=== PATIENT | male | born 1955 | race Caucasian/White ===

== ENCOUNTER 2018-03-21 07:07 | Inpatient (IN) ==
[2018-03-21] MEDS ORDERED: Sod Chloride 0.9% Inj 1,000 ML IV.SIG ONE ×2 (07:40→07:45)
--- NOTE | 2018-03-21 07:44 | ED ---
HPI General Chief complaint: Nausea/Vomiting/Diarrhea Stated complaint: Vomitting/Diabetic Complaint Time Seen by Provider: 03/21/18 07:32 History of Present Illness HPI Narrative: This patient complains of nausea and vomiting. Duration 4 days. Symptoms are moderately severe. He is a diabetic who is supposed to be on insulin but he quit taking it a year ago. He does not go to physicians. He smokes. Sounds like he just quit taking care of himself a while back. He denies depression or suicidal ideation. He had diarrhea earlier in the week but that resolved. He is not having abdominal pain or fever. No alleviating factors. Symptoms exacerbated by his noncompliance. Related Data Allergies Allergy/AdvReac Type Severity Reaction Status Date / Time No Known Allergies Allergy Uncoded 04/11/16 10:30 Review of Systems ROS: all other systems reviewed are negative [facility] Medical History Medical History Diabetes (Acute) Hypertension (Acute) Skin cancer (Acute) Social History Social History Second Hand Smoke Exposure: No Smoking Status: Current every day smoker Tobacco Type: Cigarettes How Often Do You Have a Drink Containing Alcohol: Never Recent Travel in [facility] within the Last 8 Weeks: No Recent Out of Country Travel within the Last 8 Weeks: No Exam Narrative Exam Narrative: GENERAL: Thin well-developed patient in no apparent distress. SKIN: Focused skin assessment reveals no rash and nodules. Skin is Warm and dry. HEAD: Atraumatic. Normocephalic. EYES: Pupils equal and round. No scleral icterus. No injection or drainage. ENT: No nasal bleeding or discharge. Mucous membranes pink and moist. NECK: Trachea midline. No JVD. CARDIOVASCULAR: Regular rate and rhythm. No murmur appreciated. RESPIRATORY: No accessory muscle use. Clear to auscultation. Breath sounds equal bilaterally. GASTROINTESTINAL: Abdomen soft, non-tender, nondistended. Hepatic and splenic margins not palpable. MUSCULOSKELETAL: No obvious deformities. No clubbing. No cyanosis. No edema. NEUROLOGICAL: Awake and alert. No obvious cranial nerve deficits. Motor grossly within normal limits. Normal speech. PSYCHIATRIC: Appropriate mood and affect; insight and judgment poor Course Initial Documented Vital Signs Temperature 97.9 F 03/21/18 07:21 Pulse Rate 112 H 03/21/18 07:21 Respiratory Rate 18 03/21/18 07:21 Blood Pressure 148/87 H 03/21/18 07:21 Pulse Oximetry 100 03/21/18 07:21 Last Documented Vital Signs Temperature 97.9 F 03/21/18 07:21 Pulse Rate 112 H 03/21/18 07:21 Respiratory Rate 18 03/21/18 07:21 Blood Pressure 148/87 H 03/21/18 07:21 Pulse Oximetry 100 03/21/18 07:21 Medical Decision Making MDM Narrative Medical decision making narrative: This is a 63-year-old male who complains of vomiting for [address] IV and give him IV fluid and medications for nausea and labs. Accu-Chek is 594. I gave him 2 L of normal saline IV bolus and some IV regular insulin. Studies are reviewed. This patient will require admission. He is very dehydrated. He is hyperglycemic and ketotic. He continues to vomit. He is not acidotic and is not in DKA. His bicarbonate and pH are not consistent with DKA. Case reviewed with the medical residents will admit. Repeat sugar is 374 Medical Screen Exam Complete: Yes Emergency Medical Condition: Yes Differential Diagnosis Differential Diagnosis: Dehydration, DKA, noncompliance Medical Records Medical records reviewed: Yes I reviewed the patient's medical records. Lab Data Lab results reviewed: Yes I reviewed the patient's lab results. Lab results narrative: Patient has hyperglycemia and ketosis and azotemia Result diagrams: 03/21/18 08:05 03/21/18 08:05 Lab Results 03/21/18 03/21/18 03/21/18 Range/Units 07:42 08:01 08:05 WBC 13.2 H (4.0-11.0) th/mm3 RBC 5.47 (4.50-5.90) mil/mm3 Hgb 17.1 H (13.0-17.0) gm/dL Hct 50.5 (39.0-51.0) % MCV 92.4 (80.0-100.0) fL MCH 31.3 (27.0-34.0) pg MCHC 33.9 (32.0-36.0) % RDW 13.7 (11.6-17.2) % Plt Count 281 (150-450) th/mm3 MPV 9.3 (7.0-11.0) fL Neut % (Auto) 83.0 H (16.0-70.0) % Lymph % (Auto) 9.6 (9.0-44.0) % Gaston % (Auto) 7.2 (0.0-8.0) % Eos % (Auto) 0.0 (0.0-4.0) % Baso % (Auto) 0.2 (0.0-2.0) % Neut # (Auto) 11.0 H (1.8-7.7) th/mm3 Lymph # (Auto) 1.3 (1.0-4.8) th/mm3 Gaston # (Auto) 0.9 (0.0-0.9) th/mm3 Eos # (Auto) 0.0 (0.0-0.4) th/mm3 Baso # (Auto) 0.0 (0.0-0.2) th/mm3 WBC Differential . Differential Comment Auto diff final Puncture Site Left brachial Patient Temperature 98.6 O2 Saturation 94 (90-100) % ABG pH 7.55 H* (7.380-7.420) ABG pCO2 33 L (38-42) mmHg ABG pO2 72 (61-120) mmHg ABG HCO3 29 H (22-26) mmol/L ABG O2 Content 20.5 H (12.0-20.0) Vol % ABG Base Excess 5.9 H (-2-2) mmol/L ABG Methemoglobin 0.5 (0-2) % Ky Test Present Hemoglobin 15.5 (12.0-16.0) G/DL Carboxyhemoglobin 1.4 (0-4) % Inspired O2 21 % Critical Value Yes Sodium (136-145) meq/L Potassium (3.5-5.1) meq/L Chloride (98-107) meq/L Carbon Dioxide (21.0-32.0) meq/L Anion Gap (5-15) meq/L BUN (7-18) mg/dL Creatinine (0.60-1.30) mg/dL Estimated GFR (>89) mL/min POC Glucose 594 H* (68-110) mg/dl Random Glucose (74-106) mg/dL Calcium (8.5-10.1) mg/dL Total Bilirubin (0.2-1.0) mg/dL AST (15-37) U/L ALT (12-78) U/L Alkaline Phosphatase (45-117) U/L Total Protein (6.4-8.2) g/dL Albumin (3.4-5.0) g/dL Beta-Hydroxybutyric Acd (0.00-0.39) mmol/L 03/21/18 03/21/18 03/21/18 Range/Units 08:05 08:05 09:09 WBC (4.0-11.0) th/mm3 RBC (4.50-5.90) mil/mm3 Hgb (13.0-17.0) gm/dL Hct (39.0-51.0) % MCV (80.0-100.0) fL MCH (27.0-34.0) pg MCHC (32.0-36.0) % RDW (11.6-17.2) % Plt Count (150-450) th/mm3 MPV (7.0-11.0) fL Neut % (Auto) (16.0-70.0) % Lymph % (Auto) (9.0-44.0) % Gaston % (Auto) (0.0-8.0) % Eos % (Auto) (0.0-4.0) % Baso % (Auto) (0.0-2.0) % Neut # (Auto) (1.8-7.7) th/mm3 Lymph # (Auto) (1.0-4.8) th/mm3 Gaston # (Auto) (0.0-0.9) th/mm3 Eos # (Auto) (0.0-0.4) th/mm3 Baso # (Auto) (0.0-0.2) th/mm3 WBC Differential Differential Comment Puncture Site Patient Temperature O2 Saturation (90-100) % ABG pH (7.380-7.420) ABG pCO2 (38-42) mmHg ABG pO2 (61-120) mmHg ABG HCO3 (22-26) mmol/L ABG O2 Content (12.0-20.0) Vol % ABG Base Excess (-2-2) mmol/L ABG Methemoglobin (0-2) % Ky Test Hemoglobin (12.0-16.0) G/DL Carboxyhemoglobin (0-4) % Inspired O2 % Critical Value Sodium 136 (136-145) meq/L Potassium 3.9 (3.5-5.1) meq/L Chloride 90 L (98-107) meq/L Carbon Dioxide 29.7 (21.0-32.0) meq/L Anion Gap 16 H (5-15) meq/L BUN 50 H (7-18) mg/dL Creatinine 1.68 H (0.60-1.30) mg/dL Estimated GFR 41 L (>89) mL/min POC Glucose 372 H (68-110) mg/dl Random Glucose 657 H* (74-106) mg/dL Calcium 9.2 (8.5-10.1) mg/dL Total Bilirubin 1.1 H (0.2-1.0) mg/dL AST 13 L (15-37) U/L ALT 17 (12-78) U/L Alkaline Phosphatase 109 (45-117) U/L Total Protein 8.5 H (6.4-8.2) g/dL Albumin 4.0 (3.4-5.0) g/dL Beta-Hydroxybutyric Acd 1.55 H (0.00-0.39) mmol/L 03/21/18 Range/Units 11:19 WBC (4.0-11.0) th/mm3 RBC (4.50-5.90) mil/mm3 Hgb (13.0-17.0) gm/dL Hct (39.0-51.0) % MCV (80.0-100.0) fL MCH (27.0-34.0) pg MCHC (32.0-36.0) % RDW (11.6-17.2) % Plt Count (150-450) th/mm3 MPV (7.0-11.0) fL Neut % (Auto) (16.0-70.0) % Lymph % (Auto) (9.0-44.0) % Gaston % (Auto) (0.0-8.0) % Eos % (Auto) (0.0-4.0) % Baso % (Auto) (0.0-2.0) % Neut # (Auto) (1.8-7.7) th/mm3 Lymph # (Auto) (1.0-4.8) th/mm3 Gaston # (Auto) (0.0-0.9) th/mm3 Eos # (Auto) (0.0-0.4) th/mm3 Baso # (Auto) (0.0-0.2) th/mm3 WBC Differential Differential Comment Puncture Site Patient Temperature O2 Saturation (90-100) % ABG pH (7.380-7.420) ABG pCO2 (38-42) mmHg ABG pO2 (61-120) mmHg ABG HCO3 (22-26) mmol/L ABG O2 Content (12.0-20.0) Vol % ABG Base Excess (-2-2) mmol/L ABG Methemoglobin (0-2) % Ky Test Hemoglobin (12.0-16.0) G/DL Carboxyhemoglobin (0-4) % Inspired O2 % Critical Value Sodium (136-145) meq/L Potassium (3.5-5.1) meq/L Chloride (98-107) meq/L Carbon Dioxide (21.0-32.0) meq/L Anion Gap (5-15) meq/L BUN (7-18) mg/dL Creatinine (0.60-1.30) mg/dL Estimated GFR (>89) mL/min POC Glucose 341 H (68-110) mg/dl Random Glucose (74-106) mg/dL Calcium (8.5-10.1) mg/dL Total Bilirubin (0.2-1.0) mg/dL AST (15-37) U/L ALT (12-78) U/L Alkaline Phosphatase (45-117) U/L Total Protein (6.4-8.2) g/dL Albumin (3.4-5.0) g/dL Beta-Hydroxybutyric Acd (0.00-0.39) mmol/L Discharge Plan Discharge Disposition Patient Disposition: 30 Still Patient Discharge Details Diagnosis: Intractable vomiting, Acute hyperglycemia, Diabetic ketosis without coma, Acute dehydration Physicians Team ED Provider: Anthony Chin Primary Care Provider: Gertrudis Swift Discharge Interventions Interventions: Vital Signs Last Done: 03/21/18 07:36 Status ED Status: With Doctor
[2018-03-21 08:21] LABS: ABG Base Excess 5.9 mmol/L (-2-2); ABG PCO2 33 mmHg (38-42); ABG PO2 72 mmHg (61-120)
[2018-03-21 08:23] LABS: Baso % (Auto) 0.2 % (0.0-2.0); Hematocrit 50.5 % (39.0-51.0); Hemoglobin 17.1 gm/dL (13.0-17.0); Lymph # (Auto) 1.3 th/mm3 (1.0-4.8); Lymph % (Auto) 9.6 % (9.0-44.0); Mean Corpuscular HGB Conc 33.9 % (32.0-36.0); Mean Corpuscular Hemoglobin 31.3 pg (27.0-34.0); Mean Corpuscular Volume 92.4 fL (80.0-100.0); Mean Platelet Volume 9.3 fL (7.0-11.0); Mono # (Auto) 0.9 th/mm3 (0.0-0.9); Mono % (Auto) 7.2 % (0.0-8.0); Platelet Count 281 th/mm3 (150-450); Red Blood Count 5.47 mil/mm3 (4.50-5.90); Red Cell Distribution Width 13.7 % (11.6-17.2); White Blood Count 13.2 th/mm3 (4.0-11.0)
[2018-03-21 08:53] LABS: Alanine Aminotransferase 17 U/L (12-78); Alkaline Phosphatase 109 U/L (45-117); Anion Gap 16 meq/L (5-15); Aspartate Aminotransferase 13 U/L (15-37); Blood Urea Nitrogen 50 mg/dL (7-18); Calcium 9.2 mg/dL (8.5-10.1); Carbon Dioxide 29.7 meq/L (21.0-32.0); Chloride 90 meq/L (98-107); Glomerular Filtration Rate 41 mL/min (>89); Potassium 3.9 meq/L (3.5-5.1); Sodium 136 meq/L (136-145); Total Protein 8.5 g/dL (6.4-8.2)
[2018-03-21 08:56] LABS: Glucose,Random 657 mg/dL (74-106)
--- NOTE | 2018-03-21 09:58 | P.HPFP ---
History of Present Illness Primary Care Physician: Gertrudis Swift MD <Neal May - 03/21/18 15:22> Gertrudis Swift MD <Nancy Tiwari - 03/21/18 09:58> Chief Complaint: Vomiting <Nancy Tiwari N - 03/21/18 14:08> History of Present Illness: 63 y/o w/hx of DM2 presenting w/HHS. Dropped of at the ER by his girlfriend. Has a hx of type 2 diabetes. Last took insulin a year ago, does not remember how much he was on. Insurance ran out, did not get more medication. Started feeling very sick on Sunday- had nausea and vomiting, vomited about 10- 15 times. Vomit appears very thick, is like acid. Last ate on Sunday afternoon. After that, has been vomiting. Has been able to drink water but hasn' t been able eat. No PCP and did not see the doctor during this week. Has belly pain periumbilically. Has been having chills, diarrhea, short of breath. Has been having a cough for a week. Sputum is white. Has felt feverish the last couple days. Feels weak and dizziness. No dysuria or hematuria. No unusual rashes. Thinks he has a skin cancer on his left cheek near his ear. Has had decreased appetite for the past several months. Sometimes has night sweats. Has lost weight in the last couple months. Has been feeling weak and dizzy. Underwent colonoscopy within the last 10 years. Last regular doctor was a year ago. Med hx: Has HTN. Does not take any medication. Surgery hx: Had skin cancer removed from face a year ago. No FH of medical illness: Mom: unknown Father:unknown Smoker: 20 pack year. No ETOH use, no drug use. Marijuana occasionally. <Nancy Tiwari - 03/21/18 14:43> - Diagnosis (1) Type 2 diabetes mellitus with hyperosmolar nonketotic hyperglycemia (2) Cough (3) Metabolic alkalosis (4) HTN (hypertension) (5) Smoker <Nancy Tiwari - 03/21/18 14:22> Inpatient Certification: I certify that the inpatient services were ordered in accordance with Medicare regulations governing the order. This includes certification that hospital inpatient services are reasonable and necessary and in the case of services not specified as inpatient-only under 42 CFR 419.22(n), that they are appropriately provided as inpatient services in accordance to with the 2-midnight benchmark under 43 CFR 412.3(e) <Neal May - 03/21/18 15:22> Review of Systems All other systems reviewed negative except as stated in HPI <Nancy Tiwari 03/21/18 14:08> Eyes: Denies double vision, Denies loss of vision <Nancy Tiwari 03/21/18 14 :08> Ears, Nose, Mouth, and Throat: Denies mouth pain, Denies pain with swallowing <Nancy manzo 03/21/18 14:08> Cardiovascular: Denies chest pain, Denies rapid, pounding, or irregular heartbeat <Nancy manzo 03/21/18 14:08> Respiratory: Denies chest congestion, Denies coughing up blood <Nancy manzo 03/21/18 14:08> Gastrointestinal: Denies constant urge to pass stool, Denies excessive passing of gas <Nancy 03/21/18 14:08> Genitourinary: Denies blood in urine, Denies difficulty urinating, Denies urinary urgency <jovanyNancy 03/21/18 14:08> Musculoskeletal: Denies numbness <ana 03/21/18 14:08> Neurologic: Denies numbness, Denies tingling <Nancy manzo 03/21/18 14:08> Endocrine: Denies cold intolerance, Denies increased urination <Nancy 03/21/18 14:08> PMFSH - History History Provided By: Patient <Nancy Tiwari 03/21/18 09:58> - Medical History Medical History: Medical History (Last Updated 03/21/18 @ 07:45 by Darien Mcguire) Diabetes Hypertension Skin cancer <YadiraNeal - 03/21/18 15:22> Medical History (Last Updated 03/21/18 @ 07:45 by Darien Mcguire) Diabetes Hypertension Skin cancer <Nancy Tiwari 03/21/18 09:58> - Tobacco History Second Hand Smoke Exposure: No <Nancy Tiwari - 03/21/18 09:58> Tobacco Use In Past 30 Days: No <Nancy Tiwari Devin - 03/21/18 09:58> Smoking Status: Current every day smoker <Nancy Tiwari Devin - 03/21/18 09:58> Tobacco Type: Cigarettes <Nancy Tiwari Devin - 03/21/18 09:58> - Alcohol History How Often Do You Have a Drink Containing Alcohol: Never <KeyannajovanyNancy Devin - 03/21 09:58> - Travel History Recent Travel in the [facility] Within the Last 8 Weeks: No <Nancy Tiwari Devin - 09:58> Recent Travel Out of the Country Within the Last 8 Weeks: No <KeyannajovanyNancy Devin - 03/21/18 09:58> - Immunization History Tetanus Immunization: Unsure <Nancy Tiwari Devin - 03/21/18 09:58> Medications and Allergies Allergies Allergy/AdvReac Type Severity Reaction Status Date / Time No Known Allergies Allergy Uncoded 04/11/16 10:30 <Neal May - 03/21/18 15:22> Home Medications Medication Instructions Recorded Confirmed Type No Known Home Medications 03/21/18 03/21/18 History <Neal May - 03/21/18 15:22> Active Medications: Active Medications Chlorhexidine Gluconate (Chlorhexidine 2% Cloth) 3 pack TOPICAL DAILY@0400 [facility] Stop: 03/27/18 03:59 Chlorhexidine Gluconate (Chlorhexidine 2% Cloth) 3 pack TOPICAL DAILY@0400 PRN PRN Reason: Extra cloth needed Stop: 03/27/18 03:59 Dextrose (D50w Vial) 50 ml IV.PUSH UNSCH PRN PRN Reason: PER HYPOGLYCEMIA PROTOCOL Glucagon (Glucagon Inj) 1 mg OTHER PRN PRN PRN Reason: for Hypoglycemia Protocol Insulin Human Regular 100 unit (/ Sodium Chloride) 100 mls @ 5 mls/hr IV.CONT TITRATE PRN; Protocol PRN Reason: See protocol Last Titration: 03/21/18 13:36 Dose: 6.5 units/hr, 6.5 mls/hr Sodium Chloride (1/2 Normal Saline Inj) 1,000 mls @ 250 mls/hr IV.CONT .Q4H [facility] Last Infusion: 03/21/18 15:08 Dose: Infused Potassium Chloride (Kcl 40 Meq Premix Inj) 40 meq in 100 mls @ 100 mls/hr IV.SIG Q1H PRN PRN Reason: for Initial K+ ONLY < 3.5 Potassium Chloride (Kcl 40 Meq Premix Inj) 40 meq in 100 mls @ 50 mls/hr IV.SIG Q2H PRN PRN Reason: for Subsequent K+ < 3.5 Potassium Chloride (Kcl 20 Meq Premix Inj) 20 meq in 100 mls @ 100 mls/hr IV.SIG Q1H PRN PRN Reason: for K+ 3.5 to 4.4 Potassium Chloride (Kcl 20 Meq Premix Inj) 20 meq in 100 mls @ 50 mls/hr IV.SIG Q2H PRN PRN Reason: for Initial K+ ONLY < 3.5 Last Admin: 03/21/18 13:38 Dose: 50 mls/hr Potassium Chloride (Kcl 20 Meq Premix Inj) 20 meq in 100 mls @ 50 mls/hr IV.SIG Q2H PRN PRN Reason: for Subsequent K+ < 3.5 Potassium Chloride (Kcl 20 Meq Premix Inj) 20 meq in 100 mls @ 50 mls/hr IV.SIG Q2H PRN PRN Reason: for K+ 3.5 to 4.4 Potassium Chloride (Kcl 20 Meq Premix Inj) 20 meq in 100 mls @ 50 mls/hr IV.SIG Q2H PRN PRN Reason: for K+ 4.5 to 5 Sodium Phosphate 15 mmol/ (Sodium Chloride) 105 mls @ 25 mls/hr IV.SIG UNSCH PRN PRN Reason: for Phosphate Level < 1.0 Dextrose/Sodium Chloride (D5w/1/2 Ns Inj) 1,000 mls @ 200 mls/hr IV.CONT .Q5H [facility] Last Admin: 03/21/18 15:08 Dose: 200 mls/hr Potassium Chloride (Kcl 20 Meq Premix Inj) 20 meq in 100 mls @ 100 mls/hr IV.SIG Q1H PRN PRN Reason: for K+ 4.5 to 5 Insulin Aspart (Novolog Insulin Correctional Sugar Inj) 0 unit SQ 07,13,19,01 [facility]; Protocol Nicotine (Habitrol 21 Mg Patch.24 Hr) 1 patch T-DERMAL DAILY [facility] Patch Removal (Remove Old Patch) 1 each T-DERMAL HS [facility] Sodium Bicarbonate (Sodium Bicarbonate 8.4% Inj) 50 meq IV.PUSH UNSCH PRN PRN Reason: for pH 6.9 to 7.0 Sodium Bicarbonate (Sodium Bicarbonate 8.4% Inj) 100 meq IV.PUSH UNSCH PRN PRN Reason: for pH less than 6.9 Sodium Chloride (Ns Flush) 2 ml IV.FLUSH BID [facility] Sodium Chloride (Ns Flush) 2 ml IV.FLUSH PRN PRN PRN Reason: FLUSH AFTER USING IV ACCESS <Neal May - 03/21/18 15:22> Active Medications Sodium Chloride (Ns Flush) 2 ml IV.FLUSH PRN PRN PRN Reason: FLUSH AFTER USING IV ACCESS <Nancy Tiwari - 03/21/18 09:58> Exam Vital signs: Vital Signs 03/21/18 07:21 03/21/18 12:26 03/21/18 14:22 Temperature 97.9 F Pulse Rate 112 H 80 91 H Respiratory Rate 18 17 17 Blood Pressure 148/87 H 141/90 H 153/84 H Pulse Oximetry 100 100 100 Intake & Output 03/20/18 03/21/18 03/21/18 18:59 06:59 18:59 Intake Total 2750 / 2750 Balance 2750 / 2750 Weight 54.431 kg Intake: IV 2750 / 2750 1/2 Normal Saline Inj 1,000 ML 750 / 750 @ 250 mls/hr IV.CONT .Q4H [facility] Rx#:[id number] NS Inj 1,000 ML @ Wide Open IV. 1999 / 1999 SIG BOLUS ONE Rx#:[id number] <Neal May - 03/21/18 15:22> Vital Signs 03/21/18 07:21 Temperature 97.9 F Pulse Rate 112 H Respiratory Rate 18 Blood Pressure 148/87 H Pulse Oximetry 100 Intake & Output 03/20/18 03/21/18 03/21/18 18:59 06:59 18:59 Weight 54.431 kg <Nancy Tiwari - 03/21/18 09:58> Narrative: GENERAL: Thin, pale, cachectic man appearing distressed and vomiting. SKIN: Warm and dry. A 5 mm skin lesion on the left side of the face. HEAD: Atraumatic. Normocephalic. EYES: Pupils equal and round. No scleral icterus. No injection or drainage. ENT: No nasal bleeding or discharge. Mucous membranes dry. NECK: Trachea midline. No JVD. CARDIOVASCULAR: Regular rate and rhythm. RESPIRATORY: No accessory muscle use. Clear to auscultation. Breath sounds equal bilaterally. GASTROINTESTINAL: Abdomen firm, tender in the lower quadrants. MUSCULOSKELETAL: Extremities without clubbing, cyanosis, or edema. No obvious deformities. NEUROLOGICAL: Awake and alert. No obvious cranial nerve deficits. PSYCHIATRIC: Appropriate mood and affect; insight and judgment normal. <Nancy Tiwari - 03/21/18 14:08> Results - Labs Result diagrams: 03/21/18 08:05 03/21/18 12:57 <Neal May - 03/21/18 15:22> Abnormal lab results 03/21/18 03/21/18 03/21/18 Range/Units 07:42 08:01 08:05 WBC 13.2 H (4.0-11.0) th/mm3 Hgb 17.1 H (13.0-17.0) gm/dL Neut % (Auto) 83.0 H (16.0-70.0) % Neut # (Auto) 11.0 H (1.8-7.7) th/mm3 ABG pH 7.55 H* (7.380-7.420) ABG pCO2 33 L (38-42) mmHg ABG HCO3 29 H (22-26) mmol/L ABG O2 Content 20.5 H (12.0-20.0) Vol % ABG Base Excess 5.9 H (-2-2) mmol/L Sodium (136-145) meq/L Potassium (3.5-5.1) meq/L Chloride (98-107) meq/L Anion Gap (5-15) meq/L BUN (7-18) mg/dL Creatinine (0.60-1.30) mg/dL Estimated GFR (>89) mL/min POC Glucose 594 H* (68-110) mg/dl Random Glucose (74-106) mg/dL Osmolality (275-295) mosm/kg Calcium (8.5-10.1) mg/dL Phosphorus (2.5-4.9) mg/dL Total Bilirubin (0.2-1.0) mg/dL AST (15-37) U/L Total Protein (6.4-8.2) g/dL Beta-Hydroxybutyric Acd (0.00-0.39) mmol/L U Cannabinoids Screen (Neg) 03/21/18 03/21/18 03/21/18 Range/Units 08:05 08:05 09:09 WBC (4.0-11.0) th/mm3 Hgb (13.0-17.0) gm/dL Neut % (Auto) (16.0-70.0) % Neut # (Auto) (1.8-7.7) th/mm3 ABG pH (7.380-7.420) ABG pCO2 (38-42) mmHg ABG HCO3 (22-26) mmol/L ABG O2 Content (12.0-20.0) Vol % ABG Base Excess (-2-2) mmol/L Sodium (136-145) meq/L Potassium (3.5-5.1) meq/L Chloride 90 L (98-107) meq/L Anion Gap 16 H (5-15) meq/L BUN 50 H (7-18) mg/dL Creatinine 1.68 H (0.60-1.30) mg/dL Estimated GFR 41 L (>89) mL/min POC Glucose 372 H (68-110) mg/dl Random Glucose 657 H* (74-106) mg/dL Osmolality (275-295) mosm/kg Calcium (8.5-10.1) mg/dL Phosphorus (2.5-4.9) mg/dL Total Bilirubin 1.1 H (0.2-1.0) mg/dL AST 13 L (15-37) U/L Total Protein 8.5 H (6.4-8.2) g/dL Beta-Hydroxybutyric Acd 1.55 H (0.00-0.39) mmol/L U Cannabinoids Screen (Neg) 03/21/18 03/21/18 03/21/18 Range/Units 11:00 11:16 11:19 WBC (4.0-11.0) th/mm3 Hgb (13.0-17.0) gm/dL Neut % (Auto) (16.0-70.0) % Neut # (Auto) (1.8-7.7) th/mm3 ABG pH (7.380-7.420) ABG pCO2 (38-42) mmHg ABG HCO3 (22-26) mmol/L ABG O2 Content (12.0-20.0) Vol % ABG Base Excess (-2-2) mmol/L Sodium (136-145) meq/L Potassium (3.5-5.1) meq/L Chloride (98-107) meq/L Anion Gap (5-15) meq/L BUN (7-18) mg/dL Creatinine (0.60-1.30) mg/dL Estimated GFR (>89) mL/min POC Glucose 341 H (68-110) mg/dl Random Glucose (74-106) mg/dL Osmolality 327 H (275-295) mosm/kg Calcium (8.5-10.1) mg/dL Phosphorus (2.5-4.9) mg/dL Total Bilirubin (0.2-1.0) mg/dL AST (15-37) U/L Total Protein (6.4-8.2) g/dL Beta-Hydroxybutyric Acd (0.00-0.39) mmol/L U Cannabinoids Screen Pos H (Neg) 03/21/18 03/21/18 03/21/18 Range/Units 12:57 12:57 13:34 WBC (4.0-11.0) th/mm3 Hgb (13.0-17.0) gm/dL Neut % (Auto) (16.0-70.0) % Neut # (Auto) (1.8-7.7) th/mm3 ABG pH (7.380-7.420) ABG pCO2 (38-42) mmHg ABG HCO3 (22-26) mmol/L ABG O2 Content (12.0-20.0) Vol % ABG Base Excess (-2-2) mmol/L Sodium 146 H D (136-145) meq/L Potassium 2.8 L* D (3.5-5.1) meq/L Chloride (98-107) meq/L Anion Gap (5-15) meq/L BUN 40 H (7-18) mg/dL Creatinine (0.60-1.30) mg/dL Estimated GFR 70 L (>89) mL/min POC Glucose 356 H (68-110) mg/dl Random Glucose 336 H D (74-106) mg/dL Osmolality (275-295) mosm/kg Calcium 8.1 L D (8.5-10.1) mg/dL Phosphorus 1.9 L (2.5-4.9) mg/dL Total Bilirubin (0.2-1.0) mg/dL AST (15-37) U/L Total Protein (6.4-8.2) g/dL Beta-Hydroxybutyric Acd 2.33 H D (0.00-0.39) mmol/L U Cannabinoids Screen (Neg) 03/21/18 Range/Units 14:40 WBC (4.0-11.0) th/mm3 Hgb (13.0-17.0) gm/dL Neut % (Auto) (16.0-70.0) % Neut # (Auto) (1.8-7.7) th/mm3 ABG pH (7.380-7.420) ABG pCO2 (38-42) mmHg ABG HCO3 (22-26) mmol/L ABG O2 Content (12.0-20.0) Vol % ABG Base Excess (-2-2) mmol/L Sodium (136-145) meq/L Potassium (3.5-5.1) meq/L Chloride (98-107) meq/L Anion Gap (5-15) meq/L BUN (7-18) mg/dL Creatinine (0.60-1.30) mg/dL Estimated GFR (>89) mL/min POC Glucose 224 H (68-110) mg/dl Random Glucose (74-106) mg/dL Osmolality (275-295) mosm/kg Calcium (8.5-10.1) mg/dL Phosphorus (2.5-4.9) mg/dL Total Bilirubin (0.2-1.0) mg/dL AST (15-37) U/L Total Protein (6.4-8.2) g/dL Beta-Hydroxybutyric Acd (0.00-0.39) mmol/L U Cannabinoids Screen (Neg) Short CBC 03/21/18 Range/Units 08:05 WBC 13.2 H (4.0-11.0) th/mm3 Hgb 17.1 H (13.0-17.0) gm/dL Hct 50.5 (39.0-51.0) % Plt Count 281 (150-450) th/mm3 BMP 03/21/18 03/21/18 03/21/18 08:05 12:57 12:57 Sodium 136 146 H D Cancelled Potassium 3.9 2.8 L* D Cancelled Chloride 90 L 106 D Cancelled Carbon Dioxide 29.7 27.8 Cancelled BUN 50 H 40 H Cancelled Creatinine 1.68 H 1.07 Cancelled Calcium 9.2 8.1 L D Cancelled Liver Function 03/21/18 Range/Units 08:05 Total Bilirubin 1.1 H (0.2-1.0) mg/dL AST 13 L (15-37) U/L ALT 17 (12-78) U/L Alkaline Phosphatase 109 (45-117) U/L Albumin 4.0 (3.4-5.0) g/dL <Neal May - 03/21/18 15:22> Abnormal lab results 03/21/18 03/21/18 03/21/18 Range/Units 07:42 08:01 08:05 WBC 13.2 H (4.0-11.0) th/mm3 Hgb 17.1 H (13.0-17.0) gm/dL Neut % (Auto) 83.0 H (16.0-70.0) % Neut # (Auto) 11.0 H (1.8-7.7) th/mm3 ABG pH 7.55 H* (7.380-7.420) ABG pCO2 33 L (38-42) mmHg ABG HCO3 29 H (22-26) mmol/L ABG O2 Content 20.5 H (12.0-20.0) Vol % ABG Base Excess 5.9 H (-2-2) mmol/L Chloride (98-107) meq/L Anion Gap (5-15) meq/L BUN (7-18) mg/dL Creatinine (0.60-1.30) mg/dL Estimated GFR (>89) mL/min POC Glucose 594 H* (68-110) mg/dl Random Glucose (74-106) mg/dL Total Bilirubin (0.2-1.0) mg/dL AST (15-37) U/L Total Protein (6.4-8.2) g/dL Beta-Hydroxybutyric Acd (0.00-0.39) mmol/L 03/21/18 03/21/18 03/21/18 Range/Units 08:05 08:05 09:09 WBC (4.0-11.0) th/mm3 Hgb (13.0-17.0) gm/dL Neut % (Auto) (16.0-70.0) % Neut # (Auto) (1.8-7.7) th/mm3 ABG pH (7.380-7.420) ABG pCO2 (38-42) mmHg ABG HCO3 (22-26) mmol/L ABG O2 Content (12.0-20.0) Vol % ABG Base Excess (-2-2) mmol/L Chloride 90 L (98-107) meq/L Anion Gap 16 H (5-15) meq/L BUN 50 H (7-18) mg/dL Creatinine 1.68 H (0.60-1.30) mg/dL Estimated GFR 41 L (>89) mL/min POC Glucose 372 H (68-110) mg/dl Random Glucose 657 H* (74-106) mg/dL Total Bilirubin 1.1 H (0.2-1.0) mg/dL AST 13 L (15-37) U/L Total Protein 8.5 H (6.4-8.2) g/dL Beta-Hydroxybutyric Acd 1.55 H (0.00-0.39) mmol/L Short CBC 03/21/18 Range/Units 08:05 WBC 13.2 H (4.0-11.0) th/mm3 Hgb 17.1 H (13.0-17.0) gm/dL Hct 50.5 (39.0-51.0) % Plt Count 281 (150-450) th/mm3 BMP 03/21/18 08:05 Sodium 136 Potassium 3.9 Chloride 90 L Carbon Dioxide 29.7 BUN 50 H Creatinine 1.68 H Calcium 9.2 Liver Function 03/21/18 Range/Units 08:05 Total Bilirubin 1.1 H (0.2-1.0) mg/dL AST 13 L (15-37) U/L ALT 17 (12-78) U/L Alkaline Phosphatase 109 (45-117) U/L Albumin 4.0 (3.4-5.0) g/dL <Nancy Tiwari - 03/21/18 09:58> - Imaging Impressions Chest X-Ray 03/21/18 00:00 CONCLUSION: Negative examination. <Neal May - 03/21/18 15:22> Ronan VTE Risk Assessment Ronan VTE Risk Assessment: No/Low Risk (score <= 1) <Nancy Tiwari - 14:08> Ronan Risk Assessment Model: Point Value = 1 Point Value = 2 Point Value = 3 Point Value = 5 Age 41-60 Minor surgery BMI > 25 kg/m2 Swollen legs Varicose veins or History of unexplained or recurrent spontaneous Oral contraceptives or hormone replacement Sepsis (< 1 month) Serious lung disease, including pneumonia (< 1 month) Abnormal pulmonary function Acute myocardial infarction Congestive heart failure (< 1 month) History of inflammatory bowel disease Medical patient at bed rest Age 61-74 Arthroscopic surgery Major open surgery (> 45 min) Laparoscopic surgery (> 45 min) Malignancy Confined to bed (> 72 hours) Immobilizing plaster cast Central venous access Age >= 75 History of VTE Family history of VTE Factor V Leiden Prothrombin [id number] Lupus anticoagulant Anticardiolipin antibodies Elevated serum homocysteine Heparin-induced thrombocytopenia Other congenital or acquired thrombophilia Stroke (< 1 month) Elective arthroplasty Hip, pelvis, or leg fracture Acute spinal cord injury (< 1 month) <Neal May - 03/21/18 15:22> Point Value = 1 Point Value = 2 Point Value = 3 Point Value = 5 Age 41-60 Minor surgery BMI > 25 kg/m2 Swollen legs Varicose veins or History of unexplained or recurrent spontaneous Oral contraceptives or hormone replacement Sepsis (< 1 month) Serious lung disease, including pneumonia (< 1 month) Abnormal pulmonary function Acute myocardial infarction Congestive heart failure (< 1 month) History of inflammatory bowel disease Medical patient at bed rest Age 61-74 Arthroscopic surgery Major open surgery (> 45 min) Laparoscopic surgery (> 45 min) Malignancy Confined to bed (> 72 hours) Immobilizing plaster cast Central venous access Age >= 75 History of VTE Family history of VTE Factor V Leiden Prothrombin [id number] Lupus anticoagulant Anticardiolipin antibodies Elevated serum homocysteine Heparin-induced thrombocytopenia Other congenital or acquired thrombophilia Stroke (< 1 month) Elective arthroplasty Hip, pelvis, or leg fracture Acute spinal cord injury (< 1 month) <Nancy Tiwari 03/21/18 09:58> Prophylaxis Regimen: Total Risk Factor Score Risk Level Prophylaxis Regimen 0-1 Low Early ambulation 2 Moderate Order ONE of the following: *Sequential Compression Device (SCD) *Heparin 5000 units SQ BID 3-4 Higher Order ONE of the following medications: *Heparin 5000 units SQ TID *Enoxaparin/Lovenox 40 mg SQ daily (WT < 150 kg, CrCl > 30 mL/min) *Enoxaparin/Lovenox 30 mg SQ daily (WT < 150 kg, CrCl > 10-29 mL/min) *Enoxaparin/Lovenox 30 mg SQ BID (WT < 150 kg, CrCl > 30 mL/min) AND/OR *Sequential Compression Device (SCD) 5 or more Highest Order ONE of the following medications: *Heparin 5000 units SQ TID (Preferred with Epidurals) *Enoxaparin/Lovenox 40 mg SQ daily (WT < 150 kg, CrCl > 30 mL/min) *Enoxaparin/Lovenox 30 mg SQ daily (WT < 150 kg, CrCl > 10-29 mL/min) *Enoxaparin/Lovenox 30 mg SQ BID (WT < 150 kg, CrCl > 30 mL/min) AND *Sequential Compression Device (SCD) <Neal May - 03/21/18 15:22> Total Risk Factor Score Risk Level Prophylaxis Regimen 0-1 Low Early ambulation 2 Moderate Order ONE of the following: *Sequential Compression Device (SCD) *Heparin 5000 units SQ BID 3-4 Higher Order ONE of the following medications: *Heparin 5000 units SQ TID *Enoxaparin/Lovenox 40 mg SQ daily (WT < 150 kg, CrCl > 30 mL/min) *Enoxaparin/Lovenox 30 mg SQ daily (WT < 150 kg, CrCl > 10-29 mL/min) *Enoxaparin/Lovenox 30 mg SQ BID (WT < 150 kg, CrCl > 30 mL/min) AND/OR *Sequential Compression Device (SCD) 5 or more Highest Order ONE of the following medications: *Heparin 5000 units SQ TID (Preferred with Epidurals) *Enoxaparin/Lovenox 40 mg SQ daily (WT < 150 kg, CrCl > 30 mL/min) *Enoxaparin/Lovenox 30 mg SQ daily (WT < 150 kg, CrCl > 10-29 mL/min) *Enoxaparin/Lovenox 30 mg SQ BID (WT < 150 kg, CrCl > 30 mL/min) AND *Sequential Compression Device (SCD) <Nancy Tiwari N - 03/21/18 09:58> Assessment and Plan - Assessment (1) Type 2 diabetes mellitus with hyperosmolar nonketotic hyperglycemia Code(s): E11.01 - Type 2 diabetes mellitus with hyperosmolarity with coma Status: Acute Plan: Suspect triggers are non-compliance v infection S/p 6 unit bolus of insulin regular and 1L NS bolus in the ED Start insulin drip per [facility] protocol - start rate at 5 units/hr. When serum glucose reaches 300, call MD to adjust rate to 0.02 units/kg/hr and add dextrose to IV fluids. - 1/2 NS @250 mls/hr initially - Accuchecks q1H - BMP w/Mg, PO4, and beta-hydroxybutyrate q4H - Replete potassium via - IV as needed - Transition to subq insulin when sugars reach 250. Keep on the drip for 2 hours during this time NPO Cardiac tele Check A1C Check for resolution of HHS when plasma osmolality falls below 315, serum ketoacidosis resolves, and is able to take PO (resolution of vomiting) CXR, blood cx, lactic acid, U/A ordered to evaluate for underlying infection (2) Cough Code(s): R05 - Cough Status: Acute Plan: Productive of white sputum and chronic; associated w/leukocytosis Possibly 2/2 undiagnosed bronchitis from smoking v pneumonia CXR to evaluate for pneumonia (3) Metabolic alkalosis Code(s): E87.3 - Alkalosis Status: Acute Plan: 2/2 to vomiting IV Zofran PRN Keep NPO See above plan (4) HTN (hypertension) Code(s): I10 - Essential (primary) hypertension Status: Acute Plan: Untreated Will address after resolution of HHS, plan to start on MARCELO-I (5) Smoker Code(s): F17.200 - Nicotine dependence, unspecified, uncomplicated Status: Acute Plan: Nicotine patches to be started tomorrow <Nancy Tiwari N - 03/21/18 14:22> - Assessment and Plan Fluids: per [facility] protocol Electrolytes: as above Nutrition: NPO GI prophy: none DVT prophy: SCDs, moderate risk per capayan <Nancy Tiwari - 03/21/18 14:43> - Attending Attestation See the residents documentation for details. I saw and evaluated the patient regarding the [place] portions of this evaluation and agree with the residents findings and plans as written. Parts of this note were created using [employer] voice recognition software program. While efforts were made to correct any mistakes made by this software, some mistakes, errors, and omissions may remain in the final note that were not caught when the note was originally created. Plan of care was discussed and agreed upon with the patient as specifically documented in the above note. An opportunity to ask questions with explanation was provided. Patient voiced understanding on all information reviewed and discussed. <Neal May - 03/21/18 15:22>
[2018-03-21] MEDS ORDERED: Insulin Regular (For Infusion) 100 UNIT in Sodium Chlor 0.9% Inj 99 ML IV.CONT PRN (10:40)
[2018-03-21] MEDS ORDERED: Sodium Phosphate Inj 15 MMOL in Sodium Chlor 0.9% Inj 100 ML IV.SIG PRN (10:40)
[2018-03-21] MEDS ORDERED: Potassium Chlor 40 mEq Premix 40 MEQ/100 ML PIGGYBACK IV.SIG PRN ×2 (10:40)
[2018-03-21] MEDS ORDERED: Potassium Chlor 20 mEq Premix 20 MEQ/100 ML PIGGYBACK IV.SIG PRN ×5 (10:40)
[2018-03-21] MEDS ORDERED: Sodium Chloride 0.45 % Inj 1,000 ML IV.CONT SCH (10:45)
[2018-03-21 12:00] LABS: Amphetamine Screen,Urine Neg (Neg); Barbiturate Screen,Urine Neg (Neg); Cannabinoid Screen,Urine Pos (Neg); Cocaine Screen,Urine Neg (Neg)
[2018-03-21 12:01] LABS: Opiate Screen,Urine Neg (Neg)
[2018-03-21] MEDS ORDERED: Sodium Chloride 0.9% 2 ML Flush PRN IV.FLUSH (12:45)
[2018-03-21] MEDS: Potassium Chlor 20 mEq Premix 20 MEQ/100 ML PIGGYBACK IV.SIG PRN ×2 (13:38→15:51)
[2018-03-21 14:02] LABS: Calcium 8.1 mg/dL (8.5-10.1); Carbon Dioxide 27.8 meq/L (21.0-32.0); Magnesium 2.5 mg/dL (1.5-2.5); Phosphorus 1.9 mg/dL (2.5-4.9)
[2018-03-21 14:10] LABS: Potassium 2.8 meq/L (3.5-5.1)
--- NOTE | 2018-03-21 14:37 | XR ---
EXAM DATE: 03/21/2018 2:28 PM EDT AGE/SEX: 63 years / Male INDICATIONS: Cough and vomiting. CLINICAL DATA: This is the patient's initial encounter. Patient reports that signs and symptoms have been present for 1 day and indicates a pain score of 7/10. MEDICAL/SURGICAL HISTORY: . Hypertension. Diabetes mellitus type 2 None. [place] [facility] [place]. . FINDINGS: A single AP view of the chest demonstrates the lungs to be symmetrically aerated without evidence of mass, infiltrate or effusion. The cardiomediastinal contours are unremarkable. Osseous structures a re intact. CONCLUSION: Negative examination. Electronically signed by: Rojas Reardon MD 03/21/2018 2:35 PM EDT
[2018-03-21] MEDS: Dextrose 5%/NaCl 0.45% Inj 1,000 ML IV.CONT SCH ×2 (15:08→18:13)
[2018-03-21] MEDS ORDERED: Dextrose 50% in Water 50 ML Vial IV.PUSH PRN (15:09)
[2018-03-21] MEDS: Sod Chloride 0.9% Inj 1,000 ML IV.CONT SCH (16:49)
[2018-03-21 17:22] LABS: Hemoglobin A1c 12.4 % (4.3-6.0)
[2018-03-21] MEDS: Insulin NovoLOG Aspart Correctional Sugar Inj SQ SCH (18:19)
[2018-03-21 20:14] LABS: Calcium 8.4 mg/dL (8.5-10.1); Carbon Dioxide 29.4 meq/L (21.0-32.0); Magnesium 2.4 mg/dL (1.5-2.5); Phosphorus 1.5 mg/dL (2.5-4.9); Potassium 3.5 meq/L (3.5-5.1)
[2018-03-21] MEDS: Sodium Chloride 0.9% 2 ML Flush BID IV.FLUSH SCH (21:16)
[2018-03-22] MEDS: Insulin NovoLOG Aspart Correctional Sugar Inj SQ SCH ×4 (00:36→18:38)
[2018-03-22] MEDS ORDERED: Chlorhexidine Gluconate 2% 1 Pack (2 Cloths) TOPICAL PRN (04:00)
[2018-03-22] MEDS: Sod Chloride 0.9% Inj 1,000 ML IV.CONT SCH ×2 (04:22→12:20)
[2018-03-22 05:59] LABS: Baso % (Auto) 0.1 % (0.0-2.0); Eos % (Auto) 0.2 % (0.0-4.0); Hematocrit 43.1 % (39.0-51.0); Hemoglobin 14.3 gm/dL (13.0-17.0); Lymph # (Auto) 2.1 th/mm3 (1.0-4.8); Lymph % (Auto) 21.8 % (9.0-44.0); Mean Corpuscular HGB Conc 33.2 % (32.0-36.0); Mean Corpuscular Hemoglobin 30.4 pg (27.0-34.0); Mean Corpuscular Volume 91.6 fL (80.0-100.0); Mono # (Auto) 0.7 th/mm3 (0.0-0.9); Mono % (Auto) 7.8 % (0.0-8.0); Neut # (Auto) 6.8 th/mm3 (1.8-7.7); Neut % (Auto) 70.1 % (16.0-70.0); Platelet Count 212 th/mm3 (150-450); Red Cell Distribution Width 13.4 % (11.6-17.2); White Blood Count 9.6 th/mm3 (4.0-11.0)
[2018-03-22] MEDS: Chlorhexidine Gluconate 2% 1 Pack (2 Cloths) TOPICAL SCH (06:08)
[2018-03-22 06:09] LABS: Anion Gap 10 meq/L (5-15); Blood Urea Nitrogen 24 mg/dL (7-18); Calcium 7.7 mg/dL (8.5-10.1); Chloride 106 meq/L (98-107); Glomerular Filtration Rate Greater Than 89 mL/min (>89); Glucose,Random 190 mg/dL (74-106); Magnesium 2.3 mg/dL (1.5-2.5); Phosphorus 1.9 mg/dL (2.5-4.9); Potassium 3.4 meq/L (3.5-5.1); Sodium 144 meq/L (136-145)
[2018-03-22] MEDS ORDERED: Potassium Chloride 10 MEQ ER Capsule PO ONE (07:02)
[2018-03-22] MEDS: Sodium Chloride 0.9% 2 ML Flush BID IV.FLUSH SCH ×2 (08:50→20:41)
[2018-03-22] MEDS: Lisinopril 10 MG Tablet PO SCH (08:50)
[2018-03-22] MEDS ORDERED: Lisinopril 5 MG Tablet PO SCH (09:00)
--- NOTE | 2018-03-22 11:03 | P.DIET ---
Nutritional Evaluation Type of nutrition evaluation: initial Nutrition consult regarding: Diet Evaluation Nutrition screening: Poor PO Intake Subjective Subjective Comments: Pt was NPO on 03/21/18 Objective - Diagnosis vomiting, dehydration, hyperglycemia with ketosis - Objective Body Mass Index: 17.6 % IBW: 72 (IBW = 184) Body Weight Used for Calculations: Actual Energy Needs - Lower Range (kCal/kg): 30 Energy Needs - Upper Range (kCal/kg): 35 Lower Limit kCal/kg (kCals): 1,815 Upper Limit kCal/kg (kCals): 2,118 Lower Limit Protein Factor (Grams per Kg): 1.2 Upper Limit Protein Factor (Grams per Kg): 1.5 Lower Protein Needs (Protein): 73 Upper Protein Needs (Protein): 91 Fluid Factor (ml/kg): 30 Estimated Fluid Needs (ml): 1,815 Dietitian Reviewed in Medical Record: Current diet, Curent medications, Intake & Output, Labs, Medical history Diet Order: 1999 ADA Oral Diet Intake Amount: Poor <50% Speech Therapy Recommendations: No Objective Comments: PMH: DM, HTN, skin cancer Labs: BUN 24, POC glucose 223, Ca+ 7.7, Phos 1.9 Assessment Assessment: Pt currently at nutritional risk r/t reported poor PO intake. Pt was NPO on 03/21 , now on 1999 ADA diet pt consumed 25-50% of most meals, tolerated well. Will continue to assess pts nutritional needs for a PO supplement as necessary. Monitor glucose labs and PO intake. Labs reviewed, dietitian following. Recommendations: 1. Will continue to assess pts nutritional needs for a PO supplement as necessary 2. Monitor glucose labs and PO intake 3. Dietitian following Dietitian to Monitor: Lab values, Glucose level, Intake & Output, Diet tolerance , Weight change, PO Intake, Medical course
--- NOTE | 2018-03-22 13:52 | P.PNFP ---
Subjective Interval history: Patient doing well this AM, has an appetite and is eating without problems. Denies nausea/vomiting. Vitals wnl aside from elevated BP. States he is feeling weak this morning, wants to stay another day before going home. <Nancy Tiwari - 03/22/18 15:39> Results - Labs Result diagrams: 03/22/18 04:46 03/23/18 07:00 <Neal May - 03/23/18 13:00> Abnormal lab results 03/21/18 03/22/18 03/22/18 Range/Units Unknown 16:38 18:26 VBG pH (7.360-7.400) VBG pCO2 (44-48) mmHG VBG pO2 (35-40) mmHG VBG O2 Saturation (70-76) % VBG O2 Content (9.0-17.0) Vol % VBG Base Excess (-2-2) mmol/L BUN (7-18) mg/dL POC Glucose 203 H 199 H (68-110) mg/dl Random Glucose (74-106) mg/dL Calcium (8.5-10.1) mg/dL Beta-Hydroxybutyric Acd (0.00-0.39) mmol/L Microalb/Creat Ratio 281 H (<17) m/g 03/23/18 03/23/18 03/23/18 Range/Units 03:02 03:03 06:09 VBG pH 7.47 H (7.360-7.400) VBG pCO2 36 L (44-48) mmHG VBG pO2 56 H (35-40) mmHG VBG O2 Saturation 87 H (70-76) % VBG O2 Content 18.4 H (9.0-17.0) Vol % VBG Base Excess 2.3 H (-2-2) mmol/L BUN (7-18) mg/dL POC Glucose 153 H 140 H (68-110) mg/dl Random Glucose (74-106) mg/dL Calcium (8.5-10.1) mg/dL Beta-Hydroxybutyric Acd (0.00-0.39) mmol/L Microalb/Creat Ratio (<17) m/g 03/23/18 Range/Units 07:00 VBG pH (7.360-7.400) VBG pCO2 (44-48) mmHG VBG pO2 (35-40) mmHG VBG O2 Saturation (70-76) % VBG O2 Content (9.0-17.0) Vol % VBG Base Excess (-2-2) mmol/L BUN 28 H (7-18) mg/dL POC Glucose (68-110) mg/dl Random Glucose 145 H (74-106) mg/dL Calcium 8.3 L (8.5-10.1) mg/dL Beta-Hydroxybutyric Acd 1.84 H (0.00-0.39) mmol/L Microalb/Creat Ratio (<17) m/g BMP 03/23/18 07:00 Sodium 142 Potassium 3.6 Chloride 103 Carbon Dioxide 28.8 BUN 28 H Creatinine 0.84 Calcium 8.3 L <Neal May - 03/23/18 13:00> Abnormal lab results 03/21/18 03/21/18 03/21/18 Range/Units 08:05 12:57 12:57 Neut % (Auto) (16.0-70.0) % Sodium 146 H D (136-145) meq/L Potassium 2.8 L* D (3.5-5.1) meq/L BUN 40 H (7-18) mg/dL Estimated GFR 70 L (>89) mL/min POC Glucose (68-110) mg/dl Random Glucose 336 H D (74-106) mg/dL Hemoglobin A1c 12.4 H (4.3-6.0) % Calcium 8.1 L D (8.5-10.1) mg/dL Phosphorus 1.9 L (2.5-4.9) mg/dL Albumin (3.4-5.0) g/dL Beta-Hydroxybutyric Acd 2.33 H D (0.00-0.39) mmol/L 03/21/18 03/21/18 03/21/18 Range/Units 13:34 14:40 15:38 Neut % (Auto) (16.0-70.0) % Sodium (136-145) meq/L Potassium (3.5-5.1) meq/L BUN (7-18) mg/dL Estimated GFR (>89) mL/min POC Glucose 356 H 224 H 160 H (68-110) mg/dl Random Glucose (74-106) mg/dL Hemoglobin A1c (4.3-6.0) % Calcium (8.5-10.1) mg/dL Phosphorus (2.5-4.9) mg/dL Albumin (3.4-5.0) g/dL Beta-Hydroxybutyric Acd (0.00-0.39) mmol/L 03/21/18 03/21/18 03/21/18 Range/Units 16:28 18:05 19:04 Neut % (Auto) (16.0-70.0) % Sodium (136-145) meq/L Potassium (3.5-5.1) meq/L BUN 32 H (7-18) mg/dL Estimated GFR 81 L (>89) mL/min POC Glucose 182 H 235 H (68-110) mg/dl Random Glucose 232 H D (74-106) mg/dL Hemoglobin A1c (4.3-6.0) % Calcium 8.4 L (8.5-10.1) mg/dL Phosphorus 1.5 L (2.5-4.9) mg/dL Albumin (3.4-5.0) g/dL Beta-Hydroxybutyric Acd (0.00-0.39) mmol/L 03/21/18 03/22/18 03/22/18 Range/Units 19:22 00:25 04:46 Neut % (Auto) 70.1 H (16.0-70.0) % Sodium (136-145) meq/L Potassium (3.5-5.1) meq/L BUN (7-18) mg/dL Estimated GFR (>89) mL/min POC Glucose 209 H 215 H (68-110) mg/dl Random Glucose (74-106) mg/dL Hemoglobin A1c (4.3-6.0) % Calcium (8.5-10.1) mg/dL Phosphorus (2.5-4.9) mg/dL Albumin (3.4-5.0) g/dL Beta-Hydroxybutyric Acd (0.00-0.39) mmol/L 03/22/18 03/22/18 03/22/18 Range/Units 04:46 04:46 05:39 Neut % (Auto) (16.0-70.0) % Sodium (136-145) meq/L Potassium 3.4 L (3.5-5.1) meq/L BUN 24 H (7-18) mg/dL Estimated GFR (>89) mL/min POC Glucose 223 H (68-110) mg/dl Random Glucose 190 H (74-106) mg/dL Hemoglobin A1c (4.3-6.0) % Calcium 7.7 L (8.5-10.1) mg/dL Phosphorus 1.9 L (2.5-4.9) mg/dL Albumin 3.0 L D (3.4-5.0) g/dL Beta-Hydroxybutyric Acd (0.00-0.39) mmol/L 03/22/18 Range/Units 12:51 Neut % (Auto) (16.0-70.0) % Sodium (136-145) meq/L Potassium (3.5-5.1) meq/L BUN (7-18) mg/dL Estimated GFR (>89) mL/min POC Glucose 174 H (68-110) mg/dl Random Glucose (74-106) mg/dL Hemoglobin A1c (4.3-6.0) % Calcium (8.5-10.1) mg/dL Phosphorus (2.5-4.9) mg/dL Albumin (3.4-5.0) g/dL Beta-Hydroxybutyric Acd (0.00-0.39) mmol/L Short CBC 03/22/18 Range/Units 04:46 WBC 9.6 (4.0-11.0) th/mm3 Hgb 14.3 D (13.0-17.0) gm/dL Hct 43.1 (39.0-51.0) % Plt Count 212 (150-450) th/mm3 BMP 03/21/18 03/21/18 03/21/18 12:57 12:57 19:04 Sodium 146 H D Cancelled 144 Potassium 2.8 L* D Cancelled 3.5 Chloride 106 D Cancelled 106 Carbon Dioxide 27.8 Cancelled 29.4 BUN 40 H Cancelled 32 H Creatinine 1.07 Cancelled 0.94 Calcium 8.1 L D Cancelled 8.4 L 03/22/18 04:46 Sodium 144 Potassium 3.4 L Chloride 106 Carbon Dioxide 28.0 BUN 24 H Creatinine 0.84 Calcium 7.7 L Liver Function 03/22/18 Range/Units 04:46 Albumin 3.0 L D (3.4-5.0) g/dL <Nancy Tiwari N - 03/22/18 13:52> - Imaging Impressions Chest X-Ray 03/21/18 00:00 CONCLUSION: Negative examination. <Nancy Tiwari N - 03/22/18 13:52> Physical Exam Vital signs: Vital Signs 03/22/18 14:30 03/22/18 16:00 03/22/18 20:00 Temperature 98.0 F 97.7 F 98.3 F Pulse Rate 72 80 89 Respiratory Rate 18 17 18 Blood Pressure 149/73 H 145/67 H 123/68 Pulse Oximetry 100 98 97 03/23/18 00:00 03/23/18 04:00 Temperature 98.4 F 98.2 F Pulse Rate 89 103 H Respiratory Rate 17 18 Blood Pressure 141/76 H 124/70 Pulse Oximetry 96 95 Intake & Output 03/22/18 03/23/18 03/23/18 18:59 06:59 18:59 Intake Total 1724 / 1724 420 / 420 Output Total 975 / 975 Balance 749 / 749 420 / 420 Weight 54.9 kg Intake: IV 1524 / 1524 NS Inj 1,000 ML @ 100 mls/hr IV 1524 / 1524 .CONT .Q10H [facility] Rx#:[id number] Oral 200 / 200 420 / 420 Output: Urine 975 / 975 Other: # Voids 5 2 <Neal May - 03/23/18 13:00> Vital Signs 03/21/18 14:22 03/21/18 16:47 03/21/18 17:44 Temperature Pulse Rate 91 H 75 93 H Respiratory Rate 17 18 Blood Pressure 153/84 H 178/86 H Pulse Oximetry 100 100 03/21/18 17:45 03/21/18 18:00 03/21/18 19:00 Temperature Pulse Rate 75 75 71 Respiratory Rate 7 L 24 17 Blood Pressure 174/89 H 155/86 H Pulse Oximetry 100 100 03/21/18 19:15 03/21/18 20:00 03/21/18 21:00 Temperature 98.0 F Pulse Rate 75 72 69 Respiratory Rate 20 15 14 Blood Pressure 140/65 173/86 H Pulse Oximetry 91 L 99 98 03/21/18 21:01 03/21/18 22:00 11/01/18 23:00 Temperature Pulse Rate 70 79 73 Respiratory Rate 15 14 13 Blood Pressure 90/53 L 157/83 H 154/80 H Pulse Oximetry 98 95 99 03/22/18 00:00 03/22/18 01:00 03/22/18 02:00 Temperature Pulse Rate 93 H 85 86 Respiratory Rate 26 H 13 14 Blood Pressure 160/94 H 131/63 105/55 L Pulse Oximetry 99 96 97 03/22/18 03:00 03/22/18 04:00 03/22/18 04:17 Temperature Pulse Rate 77 74 86 Respiratory Rate 14 15 25 H Blood Pressure 146/74 H 181/103 H 156/97 H Pulse Oximetry 99 99 97 03/22/18 05:00 03/22/18 06:00 03/22/18 07:00 Temperature Pulse Rate 88 89 86 Respiratory Rate 12 16 15 Blood Pressure 138/75 140/85 109/60 Pulse Oximetry 94 L 98 96 03/22/18 08:00 03/22/18 09:00 03/22/18 09:04 Temperature 99.0 F Pulse Rate 78 90 87 Respiratory Rate 14 22 19 Blood Pressure 139/71 204/98 H 176/93 H Pulse Oximetry 96 99 98 03/22/18 09:05 03/22/18 10:00 03/22/18 10:01 Temperature Pulse Rate 87 93 H 94 H Respiratory Rate 17 46 H 17 Blood Pressure 173/96 H 171/79 H Pulse Oximetry 99 99 100 03/22/18 11:00 03/22/18 12:00 03/22/18 12:17 Temperature 98.9 F Pulse Rate 75 74 89 Respiratory Rate 14 12 39 H Blood Pressure 148/71 H 89/55 L 175/98 H Pulse Oximetry 98 98 100 03/22/18 12:22 Temperature Pulse Rate 73 Respiratory Rate 30 H Blood Pressure 145/82 H Pulse Oximetry 100 Intake & Output 03/21/18 03/22/18 03/22/18 18:59 06:59 18:59 Intake Total 3519.5 / 3519.5 1000 / 1000 1000 / 1000 Output Total 725 / 725 Balance 3519.5 / 3519.5 275 / 275 1000 / 1000 Weight 58.5 kg 60.5 kg Intake: IV 3269.5 / 3269.5 1000 / 1000 1000 / 1000 D5W/1/2 NS Inj 1,000 ML @ 200 300 / 300 mls/hr IV.CONT .Q5H [facility] Rx#: [id number] NovoLIN R (IV Infusion) 100 19.5 / 19.5 UNIT In NS Inj 99 ML @ 5 UNITS/ HR 5 mls/hr IV.CONT TITRATE PRN Rx#:[id number] NS Inj 1,000 ML @ 100 mls/hr IV 1000 / 1000 1000 / 1000 .CONT .Q10H [facility] Rx#:[id number] 1/2 Normal Saline Inj 1,000 ML 750 / 750 @ 250 mls/hr IV.CONT .Q4H [facility] Rx#:[id number] KCl 20 mEq Premix Inj 20 meq In 200 / 200 100 ml @ 50 mls/hr IV.SIG Q2H [facility] Rx#:[id number] NS Inj 1,000 ML @ Wide Open IV. 1999 SIG BOLUS ONE Rx#:[id number] Oral 250 / 250 0 / 0 Output: Urine 725 / 725 Other: # Voids 4 # Incontinent Voids 0 # Bowel Movements 0 # Incontinent Bowel Movements 0 Weight On Admission 58.5 kg <Nancy Tiwari N - 03/22/18 13:52> Narrative: GENERAL: Thin, cachectic man sitting comfortably in bed, eating breakfast. SKIN: Warm and dry. A 5 mm skin lesion on the left side of the face. HEAD: Atraumatic. Normocephalic. EYES: normal EOM NECK: Trachea midline. CARDIOVASCULAR: Regular rate and rhythm. RESPIRATORY: No accessory muscle use. Clear to auscultation. GASTROINTESTINAL: Abdomen non tender MUSCULOSKELETAL: Extremities without clubbing, cyanosis, or edema. NEUROLOGICAL: Awake and alert. No obvious cranial nerve deficits. <Nancy Tiwari N - 03/22/18 15:39> Assessment and Plan - Assessment (1) Type 2 diabetes mellitus with hyperosmolar nonketotic hyperglycemia Code(s): E11.01 - Type 2 diabetes mellitus with hyperosmolarity with coma Status: Acute Plan: S/p insulin drip Currently on SSI and NPH 5 units BID per chromosomal disorders counselor Regular diet Hgb A1C 12.4 Blood cx shows no growth in 1 day Check AM BMP, beta-hydroxybutyrate (2) Metabolic alkalosis Code(s): E87.3 - Alkalosis Status: Acute Plan: Likely 2/2 to vomiting Recheck VBG (3) HTN (hypertension) Code(s): I10 - Essential (primary) hypertension Status: Acute Plan: 10 mg Lisinopril daily started today Monitor BP (4) Smoker Code(s): F17.200 - Nicotine dependence, unspecified, uncomplicated Status: Acute Plan: Nicotine patches daily <Abid,Nancy N - 03/22/18 15:21> - Assessment and Plan Fluids: DC fluids today Electrolytes: PRN Nutrition: Diabetic diet GI prophy: none DVT prophy: SCDs, moderate risk per caprini <Abid,Nancy N - 03/22/18 15:39> Discharge Planning: Likely DC tomorrow <Abid,[facility] [place] - 03/22/18 15:39> - Attending Attestation See the residents documentation for details. I saw and evaluated the patient regarding the [place] portions of this evaluation and agree with the residents findings and plans as written. Parts of this note were created using [employer] voice recognition software program. While efforts were made to correct any mistakes made by this software, some mistakes, errors, and omissions may remain in the final note that were not caught when the note was originally created. Plan of care was discussed and agreed upon with the patient as specifically documented in the above note. An opportunity to ask questions with explanation was provided. Patient voiced understanding on all information reviewed and discussed. <Neal May - 03/23/18 13:00>
[2018-03-23 03:10] LABS: Albumin/Creatinine Ratio 281 mg/g (<17)
[2018-03-23 03:15] LABS: VBG Base Excess 2.3 mmol/L (-2-2); VBG Blood Gas Oxygen Content 18.4 Vol % (9.0-17.0); VBG PCO2 36 mmHG (44-48); VBG PH 7.47 (7.360-7.400); VBG PO2 56 mmHG (35-40)
[2018-03-23] MEDS: Insulin NovoLOG Aspart Correctional Sugar Inj SQ SCH ×3 (03:18→13:54)
[2018-03-23] MEDS: Chlorhexidine Gluconate 2% 1 Pack (2 Cloths) TOPICAL SCH (04:52)
[2018-03-23 08:18] LABS: Anion Gap 10 meq/L (5-15); Blood Urea Nitrogen 28 mg/dL (7-18); Calcium 8.3 mg/dL (8.5-10.1); Carbon Dioxide 28.8 meq/L (21.0-32.0); Chloride 103 meq/L (98-107); Glomerular Filtration Rate Greater Than 89 mL/min (>89); Glucose,Random 145 mg/dL (74-106); Potassium 3.6 meq/L (3.5-5.1); Sodium 142 meq/L (136-145)
[2018-03-23 08:19] LABS: Beta Hydroxybutyric Acid 1.84 mmol/L (0.00-0.39)
--- NOTE | 2018-03-23 08:53 | P.PNFP ---
Subjective Interval history: Vitals stable overnight. Per nursing report: Patient ate 75% of his dinner last night, 75% of his lunch yesterday. Patient states that he is feeling better. Looks well this morning. Upon suggestion of discharge, patient states that he is nauseous, not able to eat, having abdominal pain, does not feel ready to leave the hospital. Patient was counseled on his medical condition and when to return the hospital/ see a doctor. <Nancy Tiwari - 03/23/18 11:08> Results - Labs Result diagrams: 03/22/18 04:46 03/23/18 07:00 <Neal May - 03/23/18 13:04> Abnormal lab results 03/21/18 03/22/18 03/22/18 Range/Units Unknown 16:38 18:26 VBG pH (7.360-7.400) VBG pCO2 (44-48) mmHG VBG pO2 (35-40) mmHG VBG O2 Saturation (70-76) % VBG O2 Content (9.0-17.0) Vol % VBG Base Excess (-2-2) mmol/L BUN (7-18) mg/dL POC Glucose 203 H 199 H (68-110) mg/dl Random Glucose (74-106) mg/dL Calcium (8.5-10.1) mg/dL Beta-Hydroxybutyric Acd (0.00-0.39) mmol/L Microalb/Creat Ratio 281 H (<17) m/g 03/23/18 03/23/18 03/23/18 Range/Units 03:02 03:03 06:09 VBG pH 7.47 H (7.360-7.400) VBG pCO2 36 L (44-48) mmHG VBG pO2 56 H (35-40) mmHG VBG O2 Saturation 87 H (70-76) % VBG O2 Content 18.4 H (9.0-17.0) Vol % VBG Base Excess 2.3 H (-2-2) mmol/L BUN (7-18) mg/dL POC Glucose 153 H 140 H (68-110) mg/dl Random Glucose (74-106) mg/dL Calcium (8.5-10.1) mg/dL Beta-Hydroxybutyric Acd (0.00-0.39) mmol/L Microalb/Creat Ratio (<17) m/g 03/23/18 Range/Units 07:00 VBG pH (7.360-7.400) VBG pCO2 (44-48) mmHG VBG pO2 (35-40) mmHG VBG O2 Saturation (70-76) % VBG O2 Content (9.0-17.0) Vol % VBG Base Excess (-2-2) mmol/L BUN 28 H (7-18) mg/dL POC Glucose (68-110) mg/dl Random Glucose 145 H (74-106) mg/dL Calcium 8.3 L (8.5-10.1) mg/dL Beta-Hydroxybutyric Acd 1.84 H (0.00-0.39) mmol/L Microalb/Creat Ratio (<17) m/g [facility] 03/23/18 07:00 Sodium 142 Potassium 3.6 Chloride 103 Carbon Dioxide 28.8 BUN 28 H Creatinine 0.84 Calcium 8.3 L <Neal May - 03/23/18 13:04> Abnormal lab results 03/21/18 03/22/18 03/22/18 Range/Units Unknown 12:51 16:38 VBG pH (7.360-7.400) VBG pCO2 (44-48) mmHG VBG pO2 (35-40) mmHG VBG O2 Saturation (70-76) % VBG O2 Content (9.0-17.0) Vol % VBG Base Excess (-2-2) mmol/L BUN (7-18) mg/dL POC Glucose 174 H 203 H (68-110) mg/dl Random Glucose (74-106) mg/dL Calcium (8.5-10.1) mg/dL Beta-Hydroxybutyric Acd (0.00-0.39) mmol/L Microalb/Creat Ratio 281 H (<17) m/g 03/22/18 03/23/18 03/23/18 Range/Units 18:26 03:02 03:03 VBG pH 7.47 H (7.360-7.400) VBG pCO2 36 L (44-48) mmHG VBG pO2 56 H (35-40) mmHG VBG O2 Saturation 87 H (70-76) % VBG O2 Content 18.4 H (9.0-17.0) Vol % VBG Base Excess 2.3 H (-2-2) mmol/L BUN (7-18) mg/dL POC Glucose 199 H 153 H (68-110) mg/dl Random Glucose (74-106) mg/dL Calcium (8.5-10.1) mg/dL Beta-Hydroxybutyric Acd (0.00-0.39) mmol/L Microalb/Creat Ratio (<17) m/g 03/23/18 03/23/18 Range/Units 06:09 07:00 VBG pH (7.360-7.400) VBG pCO2 (44-48) mmHG VBG pO2 (35-40) mmHG VBG O2 Saturation (70-76) % VBG O2 Content (9.0-17.0) Vol % VBG Base Excess (-2-2) mmol/L BUN 28 H (7-18) mg/dL POC Glucose 140 H (68-110) mg/dl Random Glucose 145 H (74-106) mg/dL Calcium 8.3 L (8.5-10.1) mg/dL Beta-Hydroxybutyric Acd 1.84 H (0.00-0.39) mmol/L Microalb/Creat Ratio (<17) m/g BMP 03/23/18 07:00 Sodium 142 Potassium 3.6 Chloride 103 Carbon Dioxide 28.8 BUN 28 H Creatinine 0.84 Calcium 8.3 L <KarieHaimNancy N - 03/23/18 08:53> Physical Exam Vital signs: Vital Signs 03/22/18 14:30 03/22/18 16:00 03/22/18 20:00 Temperature 98.0 F 97.7 F 98.3 F Pulse Rate 72 80 89 Respiratory Rate 18 17 18 Blood Pressure 149/73 H 145/67 H 123/68 Pulse Oximetry 100 98 97 03/23/18 00:00 03/23/18 04:00 Temperature 98.4 F 98.2 F Pulse Rate 89 103 H Respiratory Rate 17 18 Blood Pressure 141/76 H 124/70 Pulse Oximetry 96 95 Intake & Output 03/22/18 03/23/18 03/23/18 18:59 06:59 18:59 Intake Total 1724 / 1724 420 / 420 Output Total 975 / 975 Balance 749 / 749 420 / 420 Weight 54.9 kg Intake: IV 1524 / 1524 NS Inj 1,000 ML @ 100 mls/hr IV 1524 / 1524 .CONT .Q10H [facility] Rx#:[id number] Oral 200 / 200 420 / 420 Output: Urine 975 / 975 Other: # Voids 5 2 <Neal May - 03/23/18 13:04> Vital Signs 03/22/18 09:00 03/22/18 09:04 03/22/18 09:05 Temperature Pulse Rate 90 87 87 Respiratory Rate 22 19 17 Blood Pressure 204/98 H 176/93 H 173/96 H Pulse Oximetry 99 98 99 03/22/18 10:00 03/22/18 10:01 03/22/18 11:00 Temperature Pulse Rate 93 H 94 H 75 Respiratory Rate 46 H 17 14 Blood Pressure 171/79 H 148/71 H Pulse Oximetry 99 100 98 03/22/18 12:00 03/22/18 12:17 03/22/18 12:22 Temperature 98.9 F Pulse Rate 74 89 73 Respiratory Rate 12 39 H 30 H Blood Pressure 89/55 L 175/98 H 145/82 H Pulse Oximetry 98 100 100 03/22/18 14:30 03/22/18 16:00 03/22/18 20:00 Temperature 98.0 F 97.7 F 98.3 F Pulse Rate 72 80 89 Respiratory Rate 18 17 18 Blood Pressure 149/73 H 145/67 H 123/68 Pulse Oximetry 100 98 97 03/23/18 00:00 03/23/18 04:00 Temperature 98.4 F 98.2 F Pulse Rate 89 103 H Respiratory Rate 17 18 Blood Pressure 141/76 H 124/70 Pulse Oximetry 96 95 Intake & Output 03/22/18 03/23/18 03/23/18 18:59 06:59 18:59 Intake Total 1724 / 1724 420 / 420 Output Total 975 / 975 Balance 749 / 749 420 / 420 Weight 54.9 kg Intake: IV 1524 / 1524 NS Inj 1,000 ML @ 100 mls/hr IV 1524 / 1524 .CONT .Q10H [facility] Rx#:[id number] Oral 200 / 200 420 / 420 Output: Urine 975 / 975 Other: # Voids 5 2 <Nancy Tiwari N - 03/23/18 08:53> Narrative: GENERAL: Thin, alert, well-appearing man sitting comfortably in bed, eating breakfast. SKIN: Warm and dry. HEAD: Atraumatic. Normocephalic. EYES: normal EOM NECK: Trachea midline. CARDIOVASCULAR: Regular rate and rhythm. RESPIRATORY: No accessory muscle use. Clear to auscultation. GASTROINTESTINAL: Abdomen non distended MUSCULOSKELETAL: Extremities without clubbing, cyanosis, or edema. NEUROLOGICAL: Awake and alert. No obvious cranial nerve deficits. <Nancy Tiwari N - 03/23/18 11:08> Assessment and Plan - Assessment (1) Type 2 diabetes mellitus with hyperosmolar nonketotic hyperglycemia Code(s): E11.01 - Type 2 diabetes mellitus with hyperosmolarity with coma Status: Acute Plan: HHS triggered by noncompliance S/p insulin drip Hemoglobin A1c found to be 12.4, microalbumin/creatinine ratio elevated Since yesterday, has been on SSI and NPH 5 units BID per clinical educator Also started on lisinopril 10 mg daily Based on amount of sliding scale required yesterday, NPH dose was increased to 7 units twice daily Patient did not require sliding scale this morning. It is feasible to discharge patient on NPH 7 units twice daily and have him follow-up with primary care for further monitoring of blood sugars. Recommend glucometer with monitoring of blood sugars daily in the morning before breakfast. Needs to follow up with PCP for adjustment of insulin if fasting levels remain persistently elevated Con't diabetic diet (2) Metabolic alkalosis Code(s): E87.3 - Alkalosis Status: Acute Plan: Improved per VBG repeat Recent gastric losses are likely a contributor. Will need further work-up of urine chloride if this persists Outpatient F/u (3) HTN (hypertension) Code(s): I10 - Essential (primary) hypertension Status: Acute Plan: Improved On 10 mg Lisinopril daily Further management outpatient (4) Smoker Code(s): F17.200 - Nicotine dependence, unspecified, uncomplicated Status: Acute Plan: Nicotine patches daily <Nancy Tiwari - 03/23/18 10:46> - Assessment and Plan Fluids: none Electrolytes: PRN Nutrition: Diabetic diet GI prophy: none DVT prophy: SCDs, moderate risk per capayan <Nancy Tiwari - 11/03/18 11:08> Discharge Planning: DC today <Nancy Tiwari - 03/23/18 11:08> - Attending Attestation See the residents documentation for details. I saw and evaluated the patient regarding the [place] portions of this evaluation and agree with the residents findings and plans as written. Parts of this note were created using [employer] voice recognition software program. While efforts were made to correct any mistakes made by this software, some mistakes, errors, and omissions may remain in the final note that were not caught when the note was originally created. Plan of care was discussed and agreed upon with the patient as specifically documented in the above note. An opportunity to ask questions with explanation was provided. Patient voiced understanding on all information reviewed and discussed. <Neal May - 03/23/18 13:04>
[2018-03-23] MEDS: Sodium Chloride 0.9% 2 ML Flush BID IV.FLUSH SCH (09:25)
[2018-03-23] MEDS: Lisinopril 10 MG Tablet PO SCH (09:26)
--- NOTE | 2018-03-23 09:28 | P.DCO ---
- Physical Therapy Order: Evaluate and treat, Improve ambulation, Strength and gait training - Home Health Nursing Order: Medical education - Case Management Consult Yes - Certification I have seen patient Luis Enrique Campbell on 03/23/18. My clinical findings support the need for the requested home health care services because: Deconditioned with increased weakness I certify that my clinical findings support that this patient is homebound because: Unsteady gait/balance
--- NOTE | 2018-03-23 13:34 | P.DS ---
Date of admission: 03/21/18 11:35 Primary care physician: Gertrudis Swift MD Brief History from admission: 63 y/o w/hx of DM2 presenting w/HHS. Dropped of at the ER by his girlfriend. Has a hx of type 2 diabetes. Last took insulin a year ago, does not remember how much he was on. Insurance ran out, did not get more medication. Started feeling very sick on Sunday- had nausea and vomiting, vomited about 10- 15 times. Vomit appears very thick, is like acid. Last ate on Sunday afternoon. After that, has been vomiting. Has been able to drink water but hasn' t been able eat. No PCP and did not see the doctor during this week. Has belly pain periumbilically. Has been having chills, diarrhea, short of breath. Has been having a cough for a week. Sputum is white. Has felt feverish the last couple days. Feels weak and dizziness. No dysuria or hematuria. No unusual rashes. Thinks he has a skin cancer on his left cheek near his ear. Has had decreased appetite for the past several months. Sometimes has night sweats. Has lost weight in the last couple months. Has been feeling weak and dizzy. Underwent colonoscopy within the last 10 years. Last regular doctor was a year ago. Med hx: Has HTN. Does not take any medication. Surgery hx: Had skin cancer removed from face a year ago. No FH of medical illness: Mom: unknown Father:unknown Smoker: 20 pack year. No ETOH use, no drug use. Marijuana occasionally. DS: Diagnosis - Discharge Diagnosis (1) Type 2 diabetes mellitus with hyperosmolar nonketotic hyperglycemia Status: Acute (2) Metabolic alkalosis Status: Acute (3) HTN (hypertension) Status: Acute (4) Smoker Status: Acute DS: Medications - Discharge Medications Prescriptions: blood-glucose meter #1 each insulin NPH isoph U-100 human [Novolin N NPH U-100 Insulin] 7 units SUBCUT BID@ 0800,1700 #1 vial insulin syringe-needle U-100 [BD Insulin Syringe] #60 each lisinopril 10 mg PO DAILY #30 tab DS: Summary Hospital Course: Patient was placed on insulin drip and was monitored w/labs every 4 hours and accuchecks every 1 hour. A VBG showed metabolic alkalosis that was likely from vomiting/gastric loss. When his sugars reached below 300, the rate was reduced and dextrose was added to his fluids. Once he had an appetite and sugars reached below 250, insulin drip was discontinued and he was subsequently managed w/sliding scale and a long-acting insulin. demurrage agent assessed patient and recommended NPH 5 units BID and sliding scale. Patient was placed on NPH, which was adjusted based on the amount of sliding scale he was requiring. A work-up for infection was performed, but CXR,U/A, and blood cultures were all negative, and patient was observed to show marked improvement the next day. He stayed for another day to ensure his sugars were stabilized, and most of the recorded sugars were <160. Patient complains of stomach aches and nausea, but nursing reports showed he was eating at least 75% of his meals. He was instructed to take anti-nausea medication as needed but no further work- up was deemed necessary based on his lab work and clinical exam. His betahydroxybutyrate levels were still high in the blood, but were decreasing. A repeat VBG showed continued metabolic alkosis but improvement from the last VBG. This was thought to the effects of chronic, extremely high levels of blood glucose/uncontrolled DM2, which is expected to continue to improve with continued blood glucose control and adequate nutrition (patient is cachectic appearing). Will require monitoring of this outpatient as well and possible work -up for other underlying disorders (consider urine chloride testing). He was deemed to be medically. CM was consulted to assist patient, since he complained that he did not have insurance or money to pay for medications. He was given a blue card, information about [facility], and proper referral to PCP was made within a week to adjust insulin regimen if needed. He was also prescribed glucometer with instructions to keep a glucose log of fasting sugars until he next sees his PCP. - Time Spent with Patient Total time spent providing and/or coordinating discharge services: Greater than 30 minutes - Quality: VTE Deep Vein Thrombosis/Pulmonary Embolism Present on Admission: No Exam Vital signs: Vital Signs 03/22/18 14:30 03/22/18 16:00 03/22/18 20:00 Temperature 98.0 F 97.7 F 98.3 F Pulse Rate 72 80 89 Respiratory Rate 18 17 18 Blood Pressure 149/73 H 145/67 H 123/68 Pulse Oximetry 100 98 97 03/23/18 00:00 03/23/18 04:00 Temperature 98.4 F 98.2 F Pulse Rate 89 103 H Respiratory Rate 17 18 Blood Pressure 141/76 H 124/70 Pulse Oximetry 96 95 Intake & Output 03/22/18 03/23/18 03/23/18 18:59 06:59 18:59 Intake Total 1724 / 1724 420 / 420 Output Total 975 / 975 Balance 749 / 749 420 / 420 Weight 54.9 kg Intake: IV 1524 / 1524 NS Inj 1,000 ML @ 100 mls/hr IV 1524 / 1524 .CONT .Q10H JENNIFER Rx#:[id number] Oral 200 / 200 420 / 420 Output: Urine 975 / 975 Other: # Voids 5 2 Narrative: GENERAL: Thin, alert, well-appearing man sitting comfortably in bed, eating breakfast. SKIN: Warm and dry. HEAD: Atraumatic. Normocephalic. EYES: normal EOM NECK: Trachea midline. CARDIOVASCULAR: Regular rate and rhythm. RESPIRATORY: No accessory muscle use. Clear to auscultation. GASTROINTESTINAL: Abdomen non distended MUSCULOSKELETAL: Extremities without clubbing, cyanosis, or edema. NEUROLOGICAL: Awake and alert. No obvious cranial nerve deficits. Results Procedures completed during hospitalization: None Labs on day of discharge: Labs from last 24 hours 03/23/18 03/23/18 03/23/18 07:00 06:09 03:03 Puncture Site Peripheral line Patient Temperature 98.6 VBG pH 7.47 H VBG pCO2 36 L VBG pO2 56 H VBG HCO3 26 VBG O2 Saturation 87 H VBG O2 Content 18.4 H VBG Base Excess 2.3 H VBG Carboxyhemoglobin 1.5 VBG Methemoglobin 1.1 Hemoglobin 15.1 Inspired O2 21 Critical Value No Sodium 142 Potassium 3.6 Chloride 103 Carbon Dioxide 28.8 Anion Gap 10 BUN 28 H Creatinine 0.84 Estimated GFR Greater than 89 POC Glucose 140 H Random Glucose 145 H Calcium 8.3 L Beta-Hydroxybutyric Acd 1.84 H Ur Microalbumin mg/L U Creat (Microalbumin) Microalb/Creat Ratio 03/23/18 03/22/18 03/22/18 03:02 18:26 16:38 Puncture Site Patient Temperature VBG pH VBG pCO2 VBG pO2 VBG HCO3 VBG O2 Saturation VBG O2 Content VBG Base Excess VBG Carboxyhemoglobin VBG Methemoglobin Hemoglobin Inspired O2 Critical Value Sodium Potassium Chloride Carbon Dioxide Anion Gap BUN Creatinine Estimated GFR POC Glucose 153 H 199 H 203 H Random Glucose Calcium Beta-Hydroxybutyric Acd Ur Microalbumin mg/L U Creat (Microalbumin) Microalb/Creat Ratio 03/21/18 Unknown Puncture Site Patient Temperature VBG pH VBG pCO2 VBG pO2 VBG HCO3 VBG O2 Saturation VBG O2 Content VBG Base Excess VBG Carboxyhemoglobin VBG Methemoglobin Hemoglobin Inspired O2 Critical Value Sodium Potassium Chloride Carbon Dioxide Anion Gap BUN Creatinine Estimated GFR POC Glucose Random Glucose Calcium Beta-Hydroxybutyric Acd Ur Microalbumin mg/L 101 U Creat (Microalbumin) 36.0 Microalb/Creat Ratio 281 H Preliminary micro results at discharge 03/21/18 19:04 Aerobic Blood Culture - Preliminary Blood - Peripheral No growth in 2 days Anaerobic Blood Culture - Preliminary No growth in 2 days 03/21/18 18:55 Aerobic Blood Culture - Preliminary Blood - Peripheral No growth in 2 days Anaerobic Blood Culture - Preliminary No growth in 2 days - Impressions ITS Impressions Chest X-Ray 03/21/18 00:00 CONCLUSION: Negative examination. Discharge Plan - Discharge Disposition Patient Disposition: /Home Health Service - Discharge Condition Condition: Stable - Discharge Order Discharge Orders: Discharge Order (Routine); Ordered 03/23/18 Ordered By: Nancy Tiwari - Discharge Details Anticipated Discharge Date: 03/23/18 Discharge Comment: Instruct on use of NPH 7 units twice daily and glucometer to record blood sugars daily in the morning before breakfast and record in blood sugar log. Needs to bring log with him to PCP for adjustment and monitoring of his insulin. - Physicians Team Primary Care Provider: Gertrudis Swift Attending Provider: Neal May
== END 2018-03-23 18:48 | disposition home health service (06) ==
LOC: NEPC 07:07 → NEDA 11:35 → HIMC 17:40 → NEDA 17:44 → N07 03-22 13:48
PROVIDERS: ADMIT Family Medicine; ATTEND Family Medicine